=== PATIENT | male | born 1960 | race African-American/Black ===

== ENCOUNTER 2016-08-30 23:33 | Emergency (ER) | payer OTHER ==
[~2016-08-30] VITALS: Ht 167.6 cm; Wt 79.4 kg
[2016-08-31 00:06] VITALS: BP 126/92; TEMP 99.2
[2016-08-31 00:13] LABS: PLATELET COUNT 209 K/uL (142-355)
[2016-08-31 00:30] LABS: POTASSIUM 3.8 mmol/L (3.6-5.2)
[2016-08-31 00:42] LABS: SODIUM 139 mmol/L (136-145)
== END 2016-08-31 02:00 | disposition home or self-care (01) ==
LOC: ED 23:33
PROVIDERS: Emergency Medicine
DX: M54.5 Low back pain (principal)
CPT/HCPCS: 80053; 81000; 82550; 82553; 84484; 85027; 96365; 96375; 99284; J1885; J2405